=== PATIENT | female | born 1935 | race Caucasian/White ===

== ENCOUNTER 2018-08-08 17:16 | Inpatient (IN) ==
[2018-08-08] MEDS ORDERED: hydrOXYzine pamoate 25 MG CAPSULE PO PRN (17:36)
[2018-08-08] MEDS ORDERED: Sennosides 8.6 MG TABLET PO PRN (17:40)
[2018-08-08] MEDS ORDERED: Aspirin 325 MG TABLET PO PRN (17:45)
[2018-08-08] MEDS ORDERED: Acetaminophen 650 MG RECTAL SUPP RC PRN (17:51)
[2018-08-08] MEDS: *HR* LORazepam 1 MG TABLET PO SCH (21:00)
[2018-08-08] MEDS: Gabapentin 100 MG CAPSULE PO SCH (21:00)
[2018-08-09] MEDS: MORPHINE SUL Oral CONC 10 MG/0.5 ML ORAL.SYG SL PRN ×2 (04:31→21:25)
[2018-08-09] MEDS: *HR* LORazepam 1 MG TABLET PO SCH ×3 (04:31→21:25)
[2018-08-09] MEDS: Furosemide 40 MG TABLET PO SCH ×2 (10:31→16:40)
[2018-08-09] MEDS: Metoprolol XL (24 HR) Succ 25 MG TAB.ER.24H PO SCH (10:32)
[2018-08-09] MEDS: Gabapentin 100 MG CAPSULE PO SCH (21:25)
[2018-08-10] MEDS: MORPHINE SUL Oral CONC 10 MG/0.5 ML ORAL.SYG SL PRN (05:49)
[2018-08-10] MEDS: *HR* LORazepam 1 MG TABLET PO SCH (05:49)
[2018-08-10] MEDS: Metoprolol XL (24 HR) Succ 25 MG TAB.ER.24H PO SCH (09:47)
[2018-08-10] MEDS: Furosemide 40 MG TABLET PO SCH ×2 (09:48→16:40)
[2018-08-10] MEDS: Gabapentin 100 MG CAPSULE PO SCH (20:51)
[2018-08-11] MEDS: *HR* LORazepam 1 MG TABLET PO PRN ×3 (03:13→21:51)
[2018-08-11] MEDS: MORPHINE SUL Oral CONC 10 MG/0.5 ML ORAL.SYG SL PRN ×2 (03:13→21:51)
[2018-08-11] MEDS: Metoprolol XL (24 HR) Succ 25 MG TAB.ER.24H PO SCH (08:22)
[2018-08-11] MEDS: Furosemide 40 MG TABLET PO SCH ×2 (08:22→16:23)
[2018-08-11] MEDS: *HR* HYDROcodone/Acet 5/325 mg TABLET PO PRN (11:05)
[2018-08-11] MEDS: Gabapentin 100 MG CAPSULE PO SCH (21:51)
[2018-08-12] MEDS: Metoprolol XL (24 HR) Succ 25 MG TAB.ER.24H PO SCH (08:33)
[2018-08-12] MEDS: Furosemide 40 MG TABLET PO SCH ×2 (08:33→16:23)
[2018-08-12] MEDS: MORPHINE SUL Oral CONC 10 MG/0.5 ML ORAL.SYG SL PRN (16:49)
[2018-08-12] MEDS: Gabapentin 100 MG CAPSULE PO SCH (20:36)
[2018-08-12] MEDS: *HR* HYDROcodone/Acet 5/325 mg TABLET PO PRN (20:36)
[2018-08-12] MEDS: *HR* LORazepam 1 MG TABLET PO PRN (20:36)
[2018-08-13] MEDS: MORPHINE SUL Oral CONC 10 MG/0.5 ML ORAL.SYG SL PRN (03:45)
[2018-08-13 06:30] VITALS: BP 134/84
[2018-08-13] MEDS: Furosemide 40 MG TABLET PO SCH (08:34)
[2018-08-13] MEDS: *HR* HYDROcodone/Acet 5/325 mg TABLET PO PRN (08:34)
[2018-08-13] MEDS: *HR* LORazepam 1 MG TABLET PO PRN (08:34)
[2018-08-13] MEDS: Metoprolol XL (24 HR) Succ 25 MG TAB.ER.24H PO SCH (08:34)
== END 2018-08-13 14:10 | disposition hospice, home (50) | DRG 951 ==
LOC: INPPIK 20:39
PROVIDERS: ADMIT Internal Medicine; ATTEND Internal Medicine